=== PATIENT | male | born 1995 | race African-American/Black ===

== ENCOUNTER 2016-11-18 09:57 | Emergency (ER) ==
[2016-11-18 10:03] VITALS: BP 127/68
--- NOTE | 2016-11-18 10:39 | Diag Imaging Result Document ---
PROCEDURE NAME: FOOT COMPLETE RIGHT - 11/18/2016 RIGHT FOOT, 3 VIEWS: FINDINGS: There is no evidence of acute fracture or dislocation. No other definite bony abnormalities are present. IMPRESSION: No evidence of acute disease.
--- NOTE | 2016-11-18 10:56 | PROVIDER DOCUMENTATION ---
HPI-Musculoskeletal Pain/Inj - GENERAL Chief Complaint: Extremity Pain Stated Complaint: LT FOOT SWELLING Time Seen by Provider: 11/18/16 10:47 Source: patient, family - HX OF PRESENT ILLNESS-MUSKULOSKELTAL Nature of Presenting Problem: 21 year old AAM presents with c/o right anterior foot pain. pt reports he has recently changed his exercise routine increasing his running and playing more basketball. pt reports he awoke 2 days ago with the pain. has not taken any OTC meds, denies trauma, twisting. requesting a work excuse. Quality of Pain: reports: aching, dull Severity in ED: mild Onset/Duration: 2 days ago Timing: still present, constant, getting worse Modifying Factors: improves with: nothing (pt has not taken any OTC meds, ice or elevate) Any recent injury?: No Locality of Occurance: Home Similar Symptoms Previously?: No Recently seen or treated by another doctor?: No Review of Systems - Adult - REVIEW OF SYSTEMS - ADULT Constitutional: reports: no symptoms reported. denies: chills, fever, fatique Eyes: reports: no symptoms reported. denies: discharge, blurred vision, double vision Ears, Nose, Mouth & Throat: reports: no symptoms reported. denies: ear discharge, ear pain, nose pain, loose teeth, throat pain, throat swelling Cardiovascular: reports: no symptoms reported. denies: chest pain, palpitations , syncope Respiratory: reports: no symptoms reported. denies: chronic cough, cough, shortness of breath, wheezing Gastrointestinal: reports: no symptoms reported. denies: abdominal pain, diarrhea, nausea, poor appetite, vomiting Genitourinary: reports: no symptoms reported. denies: discharge, hematuria, urgency Musculoskeletal: reports: see HPI, joint pain (right foot), joint swelling. denies: bone pain, back pain, frequent leg cramps, muscle aches, muscle weakness , neck pain Integumentary: reports: no symptoms reported. denies: hives, itching, rash, skin sores/ulcer Neurological: reports: no symptoms reported. denies: ataxia, seizure, tremors Psychiatric: reports: no symptoms reported Endocrine: reports: no symptoms reported Hematologic/Lymphatic: reports: no symptoms reported Allergic/Immunologic: reports: no symptoms reported All Other Systems: Reviewed and Negative Past History - Adult - PAST MEDICAL HISTORY-ADULT Review of Records: reports: Old Records Reviewed, Nursing Assessment Review, Medications Reviewed, Social history reviewed & non-contributory. Major Childhood Illnesses: reports: denies history Cardiovascular: reports: denies history Respiratory: reports: denies history Gastrointestinal: reports: denies history Obstetrical/Gynecological: reports: denies history Genitourinary: reports: denies history Musculoskeletal: reports: denies history Neurological: reports: denies history Endocrine/Immune: reports: denies history Other Conditions: reports: denies history - FAMILY HISTORY Family History: reviewed, not pertinent - SOCIAL HISTORY Smoking: cigarettes, less than 1 pack/day Provider spent 3-5 mins advising pt. on dangers of tobacco.: Discussed manners to quit use, and f/u contacts for add'l counseling. Substance Use: marijuana Alcohol Use Frequency: never Physical Exam-Injury Related - Physical Exam-Injury Related Initial Vital Signs Reviewed: Yes General Appearance: appears well, alert, no apparent distress. negative: mild distress, moderate distress, severe distress, lethargic, slow to respond, obtunded, combative Eyes: pink conjunctivae. negative: conjuctival exudate, pale conjunctivae, photophobia, sclera injected, scleral icterus, subconjunctival hemorrhage Head, Ears, Nose, Mouth & Throat: normocephalic/atraumatic, moist mucous membranes, normal ENT inspection Neck: non-tender, full range of motion, supple, normal inspection. negative: C- spine tenderness, limited range of motion, pain on movement, tender lateral, tender midline, vertebral point tenderness Respiratory: chest non-tender, lungs clear, normal breath sounds, no pleuratic chest pain, no respiratory distress, no accessory muscle use. negative: respiratory distress, decreased breath sounds, accessory muscle use, crackles, rales, rhonchi, stridor, wheezing Cardiovascular: normal peripheral pulses, regular rate, rhythm, no edema, no gallop, no JVD, no murmur Chest/Breast: deferred Peripheral Pulses: radial (R): 3+, radial (L): 3+, dorsalis-pedis (R): 3+, dorsalis-pedis (L): 3+ Abdominal Exam: normal bowel sounds, non tender, soft Male Genitalia: deferred Rectal Exam: deferred Hemoccult Exam: deferred Lymphatic: no adenopathy Back Exam: normal inspection, no CVA tenderness, no vertebral tenderness. negative: CVA tenderness, decreased range of motion, swelling, vertebral tenderness Extremity: normal range of motion, normal gait, normal inspection, no pedal edema, no calf tenderness, normal capillary refill, pelvis stable, swelling ( right anterior distal foot with scant swelling, nonfocal diffuse tenderness.), tenderness. negative: non-tender, abnormal NV exam, calf tenderness, deformity , erythema, inflammation, joint effusion, pulse deficit, pedal edema, slow capillary refill Integumentary: normal color, warm/dry Neurologic: grossly normal, no motor/sensory deficits Psych/Mental Status: normal mood/affect, normal thought content, normal thought process, oriented x 3 - Glascow Coma Score Best Eye Response ([place]): (4) open spontaneously Best Verbal Response ([place]): (5) oriented Best Motor Response ([place]): (6) obeys commands [place] Total: 15 Progress - PLAN OF CARE/RESULTS Progress/Plan/Lab Results: Orders Category Date Time Status Jay Wrap Application DIRECTED Care 11/18/16 10:57 Active FOOT COMPLETE RIGHT [RAD] Stat Exams 11/18/16 10:11 Completed Vital Signs - 24 hr 11/18/16 10:02 Temperature 97.7 F Pulse Rate 77 Respiratory 16 Rate Blood Pressure 127/68 O2 Sat by Pulse 99 Oximetry - XRAY 1 XRAY: Right XRAY Study: Foot Impression: Normal (no evidence of acute disease per Dr. Hollis) Departure - Departure Time of Disposition Order: 10:54 DIAGNOSIS: Right foot sprain Qualifiers: Encounter type: initial encounter Qualified Code(s): S93.601A - Unspecified sprain of right foot, initial encounter Disposition: HOME 01 Certified Medical Emergency: Emergent Condition: Stable Additional Instructions: Ice for 20 minutes every 2-3 hours. Elevate. Take the ibuprofen as directed with the pepcid. Follow up with orthopedics in 7 days if not improved. Jay wrap as needed for comfort. ED Follow Up Instructions: You have been treated by a care provider in the Emergency Department. These instructions are being provided to you so you can have an understanding of how to care for yourself upon discharge. Upon discharge from the Emergency Department, you are responsible for making arrangements for follow-up care by a physician of your choice. Take all prescribed medications as directed. Return to the Emergency Department immediately for any new or worsening symptoms. You may call the Physician Referral phone number at [phone] to obtain a list of Physicians who are taking new patients. Prescriptions: Ibuprofen [Motrin] 800 mg PO Q8H PRN PRN #20 tablet PRN Reason: inflammation Famotidine [Pepcid] 20 mg PO DAILY #20 tablet Referrals: None,PCP [Primary Care Provider] - Ko Foley MD [STAFF PHYSICIAN] - Forms: Return to School/Parent Work Instructions: Foot Sprain Attestation - Physician/ ARIANA Attestation Patient care was provided by Advanced Practice Provider:: Yes Advanced Practice Provider:: Lizeth Ward Advanced Practice Provider documentation review:: The Mid-level provider documentation, treatment plan and medical decision making was reviewed by the physician who agrees with all treatment and medical decision making by the MLP.
== END 2016-11-18 11:14 | disposition home or self-care (01) ==
LOC: ED 09:57
DX: S93.601A Unspecified sprain of right foot, initial encounter (principal); M79.671 Pain in right foot; M25.474 Effusion, right foot; F17.210 Nicotine dependence, cigarettes, uncomplicated; Z71.6 Tobacco abuse counseling